=== PATIENT | male | born 1970 | race Caucasian/White ===

== ENCOUNTER → 2019-09-17 10:17 | Outpatient (CLI) | payer BC, SELFPAY ==
--- NOTE | 2019-09-17 10:27 | EKG12_ITS ---
Test Reason : PRE-OP Blood Pressure : / mmHG Vent. Rate : 065 BPM Atrial Rate : 065 BPM P-R Int : 148 ms QRS Dur : 100 ms QT Int : 392 ms P-R-T Axes : 044 027 018 degrees QTc Int : 407 ms Normal sinus rhythm Normal ECG Confirmed by DENIA TORRES, BHARAT ([id number]), editor at large MANE SOSA ([id number]) on 09/18/2019 1:15:15 PM Referred By: Danny Garcia Confirmed By:SUNI LOZA MD
[2019-09-17 11:06] LABS: Absolute Lymphocyte Count 1.73 X10^3/uL (0.83-4.51); Absolute Neutrophil Count 5.9 X10^3/uL (2.0-7.7); Basophil# 0.08 X10^3/uL; Basophil% 0.9 % (0-1); Eosinophil# 0.29 X10^3/uL; Eosinophils% 3.3 % (0-5); Hematocrit 46.2 % (40-54); Lymphocyte # 1.73 X10^3/ul (4.0); Lymphocyte % 19.6 % (19-41); Mean Corp Hgb Conc 32.5 g/dL (32-36); Mean Corpuscular Hgb 28.5 pg (27.0-32.0); Mean Corpuscular Volume 87.7 fL (80-94); Mean Platelet Vol. 10.5 fl (6.2-12.0); Monocyte% 9.1 % (0-10); NRBC Flagged by Analyzer 0 % (0-5); Neutrophil # 5.89 X10^3/uL (2.7-7.7); Neutrophil % 66.6 % (47-70); Platelet Count 322 K/mm3 (150-450); RBC Distribution Width CV 12.5 % (11.6-14.6); Red Blood Count 5.27 M/mm3 (4.6-6.2); White Blood Count 8.8 K/mm3 (4.4-11.0)
[2019-09-17 11:25] LABS: Anion Gap 4 (5-15); BUN 24 mg/dL (7-18); BUN/Creat Ratio 22.4 RATIO (10-20); Calcium,Total 9.2 mg/dL (8.5-10.1); Chloride 107 mmol/L (98-107); Creatinine, Serum 1.07 mg/dL (0.70-1.30); EST Glomerular Filtration Rate 78 mL/min (>60); Est Glom Filt Rate - Afr Amer 94 mL/min (>60); Glucose 90 mg/dL (74-106); Potassium 4.2 mmol/L (3.5-5.1); Sodium Level 139 mmol/L (136-145)
== END ==
PROVIDERS: Family Provider Student in an Organized Health Care Education/Training Program; PCP Student in an Organized Health Care Education/Training Program; Referring Provider Physician Assistant; Visit Provider Physician Assistant
DX: Z01.818 Encounter for other preprocedural examination (principal); Z01.810 Encounter for preprocedural cardiovascular examination
CPT/HCPCS: 36415; 80048; 85025; 93005

== ENCOUNTER → 2020-06-21 09:15 | Outpatient (CLI) | payer BC, SELFPAY ==
--- NOTE | 2020-06-21 09:18 | RAD_ITS ---
STUDY: AIR-CONTRAST UPPER GI SERIES. REASON FOR EXAM: Male, 50 years old. HEART BURN. GASTRIC BYPASS 5 YEARS AGO. ACHALASIA SURGERY 2 YEARS AGO. FLUOROSCOPY TIME (if supplied): ( 39 seconds ) minutes/seconds. 16 images were obtained. TECHNIQUE: The patient ingested barium. Multiple images of the esophagus, stomach and duodenum were obtained. COMPARISON: None. FINDINGS: There is mild dilatation of the esophagus with decreased peristaltic activity. Mild residual narrowing at the gastroesophageal junction. The patient has a history of prior myomectomy for treatment of achalasia. The patient is status post subtotal gastrectomy. No mass lesion is seen. There is no evidence of obstruction. RAD/Upper GI Dual Contrast IMPRESSION: Status post myomectomy for achalasia of the distal esophagus. Status post subtotal gastrectomy. No acute abnormality is seen. Electronically Signed: Duy Tovar, at 9:50 EDT , Service support ,
== END ==
PROVIDERS: PCP Student in an Organized Health Care Education/Training Program; Referring Provider Nurse Practitioner Adult Health; Visit Provider Nurse Practitioner Adult Health
DX: K31.89 Other diseases of stomach and duodenum (principal); Z98.84 Bariatric surgery status
CPT/HCPCS: 74246

== ENCOUNTER → 2024-07-21 | Outpatient (CLI) | payer BC, SELFPAY ==
[2024-07-21 11:05] LABS: Absolute Neutrophil Count 5.8 X10^3/uL (2.0-7.7); Basophil# 0.08 X10^3/uL; Basophil% 0.9 % (0-1); Eosinophil# 0.23 X10^3/uL; Eosinophils% 2.6 % (0-5); Hematocrit 46.1 % (40-54); Hemoglobin 15.3 g/dL (13.0-16.5); Lymphocyte % 21.7 % (19-41); Mean Corp Hgb Conc 33.2 g/dL (32-36); Mean Corpuscular Hgb 29.3 pg (27.0-32.0); Mean Corpuscular Volume 88.3 fL (80-94); Mean Platelet Vol. 10.5 fl (6.2-12.0); Monocyte# 0.69 X10^3/uL; Monocyte% 7.9 % (0-10); NRBC Flagged by Analyzer 0 % (0-5); Neutrophil # 5.79 X10^3/uL (2.7-7.7); Neutrophil % 66.2 % (47-70); Platelet Count 313 K/mm3 (150-450); RBC Distribution Width CV 12.4 % (11.6-14.6); RBC Distribution Width SD 39.9 fl (35.1-43.9); Red Blood Count 5.22 M/mm3 (4.6-6.2); White Blood Count 8.8 K/mm3 (4.4-11.0)
[2024-07-21 11:33] LABS: Anion Gap 3 (5-15); BUN 14 mg/dL (7-18); BUN/Creat Ratio 14.9 RATIO (10-20); Calcium,Total 8.9 mg/dL (8.5-10.1); Chloride 108 mmol/L (98-107); Creatinine, Serum 0.94 mg/dL (0.70-1.30); EST Glomerular Filtration Rate 89 mL/min (>60); Est Glom Filt Rate - Afr Amer 108 mL/min (>60); Glucose 90 mg/dL (74-106); Potassium 4.4 mmol/L (3.5-5.1); Sodium Level 140 mmol/L (136-145)
== END | disposition home or self-care (01) ==
LOC: LAB 10:14
PROVIDERS: PCP Student in an Organized Health Care Education/Training Program; Referring Provider Physician Assistant Surgical; Visit Provider Physician Assistant Surgical
DX: Z01.818 Encounter for other preprocedural examination (principal)
CPT/HCPCS: 36415; 80048; 85025